=== PATIENT | female | born 1990 | race Caucasian/White ===

== ENCOUNTER 2025-06-25 13:54 | Emergency (ER) | payer OTHER, SELFPAY ==
[2025-06-25 14:28] VITALS: BP 124/61; PULSE 85; RESP 17; TEMP 36.6; O2SAT 97; BMI 32.0
--- NOTE | 2025-06-25 14:29 | ED_ITS ---
HPI - General Adult General Chief complaint: Dyspnea Stated complaint: difficulty breathing Time Seen by Provider: 06/25/25 16:34 Source: patient Mode of arrival: ambulatory Limitations: no limitations History of Present Illness ED Provider: HPI narrative: Currently 6 months , has a history of asthma, using nebulizers without much relief, coinciding with the fact that she has gotten a kit for home, no chest pain no pleurisy no abdominal pain this is a 1st and it has so far been unremarkable. Related Data Previous Rx's ?Medication ?Instructions ?Recorded albuterol sulfate 90 mcg/actuation 2 puff inhalation Q ID PRN 06/25/25 aerosol inhaler (Ventolin HFA) shortness of breath or wheezing #6.7 grams loratadine 10 mg tablet 10 mg PO DAILY PRN allergic 06/25/25 symptoms #30 tabs Allergies Allergy/AdvReac Type Severity Reaction Status Date / Time azithromycin Allergy Itching Verified 06/25/25 14:30 Review of Systems 2 Constitutional: Constitutional: Reports as per [facility] Social History Social History Advance Directives: No Advance Directives Information Provided: No Do you have a plan to hurt others: No Plan Physical Exam ED Vital Signs: Vital Signs - 24 hr 06/25/25 14:28 06/25/25 17:10 Temperature 98 F Pulse Rate 85 82 Respiratory Rate 17 18 Blood Pressure 124/61 Pulse Oximetry 97 Oxygen Delivery Method Room Air BMI result Body Mass Index 32.0 Const Other: * Gen: ?Overall well-appearing patient * HEENT: PERRLA, EOMI, MMM, * Neck: Supple, no LAD * CV: RRR, no obvious murmurs appreciated * Resp: ?No wheezing rales rhonchi no stridor moving air well * Abd: ?Gravid uterus * MSK: FROM, strength 5/5 all extremities * Skin: Warm, dry, intact, * Neuro: ?Alert and oriented x3, moving upper and lower extremities symmetrically, no obvious facial asymmetry noted Course Course Course Narrative: Rapid medical examination performed in triage by Kelsey Brannon PA-C. Patient is a 34 year old assigned female at presenting to the emergency department with shortness of breath. Detailed physical exam and review of systems are deferred to the clinical rehabilitation coordinator. EKG, labs, and swabs ordered. Patient placed back in the waiting room pending room availability and results. Medications Administered Discontinued Medications Generic Name Dose Route Start Last Admin Trade Name Maria Dolores PRN Reason Stop Dose Admin Albuterol Sulfate 2.5 mg/ 0 mg 06/25/25 17:10 06/25/25 17:15 Albuterol/Ipratropium 3 ml INHALE 06/25/25 17:11 1 dose ONCE ONE Administration Procedures Ultrasound ED POC Ultrasound: EMERGENCY ULTRASOUND REPORT?Point of Care Cardiac (Echo-Focus), images I locally stored Emergent Cardiac for Indication: Views Used: Parasternal long, parasternal short, 4 chamber, subxiphoid, IVC Pericardial Effusion/Tamponade Findings: No pericardial effusion, no RV strain Global LV Fxn: Good cardiac squeeze IVC Dilation and Resp Variation: IVC more than 50% collapsed Impression: No RV strain no pericardial effusion Medical Decision Making Medical Decision Making [facility] Narrative: Patient is likely presenting with allergies to animal as her dyspnea is fairly minimal but I can see that she is slightly short of breath, she is not wheezing, we will give nebulizer treatment, we will recommend loratadine which is safe in , bedside ultrasound without pericardial effusion so I do not suspect myocarditis she is nonfebrile not tachycardic not hypoxic, no RV strain no PE risk factors, I had a shared decision-making with the patient regarding what it PE workup would indicate and I would use a years criteria but if D-dimer came back positive CTA would be indicated, patient understood my reasoning and was not interested in further workup, based on exam I also did not feel that she requires chest x-ray, blood work with leukocytosis expected in Differential Diagnosis Differential Diagnoses: The differential diagnosis associated with the presentation includes (PE, myocarditis and , asthma, allergies, pneumonia) Lab Data MDM Lab Attestation statement: I reviewed the patient's lab results. 06/25/25 15:07 06/25/25 15:07 Labs: Lab Results 06/25/25 Range/Units 15:07 WBC 13.7 H (4.8-10.8) X10*3/uL RBC 4.31 (4.20-5.50) X10*6/uL Hgb 12.3 (12.0-16.0) g/dl Hct 36.5 L (37.0-47.0) % MCV 84.7 (80.0-98.0) fL MCH 28.5 (27.0-33.0) pg MCHC 33.7 (31.0-35.0) g/dl RDW 13.2 (11.0-16.0) % Plt Count 262 (160-400) X10*3/uL MPV 11.0 (9.4-12.3) fL Immature Gran % (Auto) 1.5 H (0.0-0.4) % Neut % (Auto) 68.5 (45-73) % Lymph % (Auto) 18.4 L (20-40) % [place] % (Auto) 6.7 (2-11) % Eos % (Auto) 4.3 H (0-4) % Baso % (Auto) 0.6 (0-2) % Lymph # (Auto) 2.5 (1.2-4.9) X10*3/uL [place] # (Auto) 0.9 (0.1-1.2) X10*3/uL Eos # (Auto) 0.6 H (0.0-0.4) X10*3/uL Baso # (Auto) 0.1 (0.0-0.2) X10*3/uL Abs Immat Gran (auto) 0.20 H (0.00-0.03) X10*3/uL Absolute Neuts (auto) 9.4 H (2.0-8.3) x10*3/uL Absolute Nucleated RBC 0.000 (0.0-0.012) X10*3/uL Nucleated RBC % (auto) 0.0 (0.0-0.2) /100WBC Sodium 136 (135-145) mmol/L Potassium 3.6 (3.3-5.1) mmol/L Chloride 104 (96-108) mmol/L Carbon Dioxide 23 (22-29) mmol/L Anion Gap 13 (12-20) BUN 7 L (9-16) mg/dL Creatinine 0.73 (0.5-1.4) mg/dL Estim Creat Clear Calc 106.9 Estimated GFR > 60 Random Glucose 96 (60-115) mg/dL Calcium 8.9 (8.4-10.2) mg/dL Magnesium 1.8 (1.6-2.6) mg/dL Total Bilirubin 0.4 (0.0-1.0) mg/dL AST 20 (5-31) U/L ALT 14 (0-31) U/L Alkaline Phosphatase 65 (39-117) U/L Troponin I High Sens < 2.7 (<3.5-17.0) ng/L Total Protein 6.7 (6.5-8.0) g/dL Albumin 3.8 (3.5-5.0) g/dL Independent Interpretation I performed an independent interpretation of an: EKG (73 beats per minute otherwise normal ECG without dysrhythmia, AV juanjose blocks or ST-T changes to suspect underlying ACS, my independent interpretation) Tests considered The following testing was considered but not selected: Chest x-ray, CT angio Chronic Conditions Patient?s care impacted by: Other (Second trimester ) Discharge Plan Discharge Clinical Impression: Asthma with exacerbation Patient Disposition: Home, Self-Care Additional Instructions: Albuterol 2 puffs every 4 hours through spacer for rest of the day, loratadine 1 pill today, Ildefonso has to go Blood work reassuring, EKG unremarkable As discussed did not feel further imaging such as chest x-ray indicated, and based on your symptoms now just on findings did not feel further workup for blood clots is warranted as well as it can potential exposure to radiation we have discussed that, if he feeling worse come back to the ER otherwise make sure to update your OB regarding your symptoms and ER visit Prescriptions: New loratadine 10 mg tablet 10 mg PO DAILY PRN (Reason: allergic symptoms) Qty: 30 0RF albuterol sulfate [Ventolin HFA] 90 mcg/actuation HFA aerosol inhaler 2 puff inhalation QID PRN (Reason: shortness of breath or wheezing) Qty: 6.7 0RF Stand Alone Forms: Work/School Release Print Language: Uzbek
--- NOTE | 2025-06-25 14:36 | ECG_ITS ---
Test Reason : DYSPNEA Blood Pressure : */* mmHG Vent. Rate : 73 BPM Atrial Rate : 73 BPM P-R Int : 134 ms QRS Dur : 80 ms QT Int : 390 ms P-R-T Axes : 2 31 28 degrees QTcB Int : 429 ms Normal sinus rhythm Normal ECG No previous ECGs available Referred By: Kelsey Brannon Electronically Signed By: NICOLA STEWART
[2025-06-25 15:27] LABS: MANUAL DIFF FLAG NO
[2025-06-25 15:33] LABS: Hematocrit 36.5 % (37.0-47.0); Hemoglobin 12.3 g/dl (12.0-16.0); Imm Gran Abs Auto 0.20 X10*3/uL (0.00-0.03); Imm Gran Pct Auto 1.5 % (0.0-0.4); Lymphocytes Absolute Auto 2.5 X10*3/uL (1.2-4.9); Mean Corpuscular HGB Conc 33.7 g/dl (31.0-35.0); Mean Corpuscular Hemoglobin 28.5 pg (27.0-33.0); Mean Corpuscular Volume 84.7 fL (80.0-98.0); NRBC Abs Auto 0.000 X10*3/uL (0.0-0.012); NRBC Pct Auto 0.0 /100WBC (0.0-0.2); Platelet Count 262 X10*3/uL (160-400); Red Blood Count 4.31 X10*6/uL (4.20-5.50); White Blood Count 13.7 X10*3/uL (4.8-10.8)
[2025-06-25 15:44] LABS: Anion Gap 13 (12-20); Blood Urea Nitrogen 7 mg/dL (9-16); Carbon Dioxide 23 mmol/L (22-29); Chloride 104 mmol/L (96-108); Potassium 3.6 mmol/L (3.3-5.1); Sodium 136 mmol/L (135-145)
[2025-06-25 15:45] LABS: Alanine Aminotransferase 14 U/L (0-31); Albumin Level 3.8 g/dL (3.5-5.0); Alkaline Phosphatase 65 U/L (39-117); Aspartate Amino Transferase 20 U/L (5-31); Calcium 8.9 mg/dL (8.4-10.2); Creatinine Clr Calc Pharmacy 106.9; Estimated Glomerular Filt Rate > 60; Magnesium 1.8 mg/dL (1.6-2.6); Total Protein 6.7 g/dL (6.5-8.0)
[2025-06-25 15:52] LABS: Troponin-I High Sensitivity < 2.7 ng/L (<3.5-17.0)
[2025-06-25 17:10] VITALS: PULSE 82; RESP 18; O2SAT 98
[2025-06-25] MEDS: Albuterol Sulfate 2.5 MG, Albuterol/Iprat 2.5/0.5MG 3 ML 3 ML INHALE (17:15)
[2025-06-25 18:00] VITALS: BP 126/77; PULSE 99; RESP 18; TEMP 36.8; O2SAT 100
[2025-06-25 19:10] VITALS: BP 126/77; PULSE 99; RESP 18; TEMP 36.8; O2SAT 100
== END 2025-06-25 19:21 | disposition home or self-care (01) ==
PROVIDERS: Physician Assistant Medical; Emergency Provider Emergency Medicine; PCP Nurse Practitioner Family
DX: J45.901 Unspecified asthma with (acute) exacerbation (principal); R06.02 Shortness of breath; Z79.899 Other long term (current) drug therapy
CPT/HCPCS: 36415; 80053; 83735; 84484; 85025; 93005; 94640; 99284

== ENCOUNTER → 2025-06-25 14:36 | Outpatient (BNV) | payer OTHER, SELFPAY | PROVIDERS: Emergency Provider Emergency Medicine; PCP Nurse Practitioner Family; Visit Provider Internal Medicine | DX: R06.00 Dyspnea, unspecified (principal) | CPT/HCPCS: 93010 ==

== ENCOUNTER 2025-08-16 11:00 | Emergency (ER) | payer OTHER, SELFPAY ==
[2025-08-16 11:15] VITALS: BP 129/59; PULSE 103; RESP 16; TEMP 37; O2SAT 97; BMI 33.6
--- NOTE | 2025-08-16 11:19 | ECG_ITS ---
Test Reason : CP Blood Pressure : */* mmHG Vent. Rate : 99 BPM Atrial Rate : 99 BPM P-R Int : 112 ms QRS Dur : 70 ms QT Int : 348 ms P-R-T Axes : 0 27 11 degrees QTcB Int : 446 ms Normal sinus rhythm with sinus arrhythmia Normal ECG When compared with ECG of 25-Jun-2025 14:55, No significant change was found Referred By: Joe Krause Electronically Signed By: Laith Taylor
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
[2025-08-16 11:45] LABS: Carbon Monoxide POC 1.8 %
[2025-08-16 12:26] VITALS: BP 129/59; PULSE 103; RESP 16; TEMP 37; O2SAT 97
== END 2025-08-16 12:26 | disposition home or self-care (01) ==
PROVIDERS: Physician Assistant; Emergency Provider Emergency Medicine; PCP Nurse Practitioner Family
DX: O26.90 Pregnancy related conditions, unspecified, unspecified trimester (principal); T58.91XA Toxic effect of carbon monoxide from unspecified source, accidental (unintentional), initial encounter; R07.89 Other chest pain; I49.8 Other specified cardiac arrhythmias; Z79.899 Other long term (current) drug therapy
CPT/HCPCS: 36415; 76815; 82375; 93005; 99283; 99284

== ENCOUNTER → 2025-08-16 11:19 | Outpatient (BNV) | payer OTHER, SELFPAY | PROVIDERS: Emergency Provider Emergency Medicine; PCP Nurse Practitioner Family; Visit Provider Internal Medicine Cardiovascular Disease | DX: R07.89 Other chest pain (principal) | CPT/HCPCS: 93010 ==